=== PATIENT | male | born 1965 | race African-American/Black ===

== ENCOUNTER 2016-11-02 09:27 | Emergency (ER) | payer SELFPAY ==
[2016-11-02] MEDS ORDERED: Lidocaine 1% 20 ML MDV ONE (09:38)
== END 2016-11-02 10:18 | disposition home or self-care (01) ==
LOC: NAV ERS 09:27
DX: D17.0 Benign lipomatous neoplasm of skin and subcutaneous tissue of head, face and neck (principal); L08.9 Local infection of the skin and subcutaneous tissue, unspecified; F17.210 Nicotine dependence, cigarettes, uncomplicated
CPT/HCPCS: 10060; 87070; 87205; J2001

== ENCOUNTER 2016-11-04 14:13 | Emergency (ER) | payer SELFPAY | END 2016-11-04 14:34 | disposition home or self-care (01) | LOC: NAV ERS 14:13 | DX: Z48.01 Encounter for change or removal of surgical wound dressing (principal); F17.210 Nicotine dependence, cigarettes, uncomplicated; Z79.891 Long term (current) use of opiate analgesic; Z79.2 Long term (current) use of antibiotics | CPT/HCPCS: 99282 ==

== ENCOUNTER 2022-07-02 16:34 | Emergency (ER) | payer SELFPAY | END 2022-07-02 17:05 | disposition home or self-care (01) | LOC: NAV ERS 16:34 | DX: R11.0 Nausea (principal); R53.81 Other malaise; Z20.822 Contact with and (suspected) exposure to COVID-19 | CPT/HCPCS: 99282 ==